=== PATIENT | female | born 1975 | race Caucasian/White ===

== ENCOUNTER 2020-06-06 15:58 | Inpatient (IN) | payer OTHER ==
[2020-06-06 18:24] VITALS: BMI 20.5
[2020-06-06] MEDS ORDERED: chlordiazePOXIDE HCL 25 MG CAPSULE PO PRN (20:19)
[2020-06-06] MEDS ORDERED: MAGNESIUM HYDROX 2400MG/30ML ORAL SUSPENSION 30 ML CUP PO PRN (20:19)
[2020-06-06] MEDS ORDERED: ACETAMINOPHEN 325 MG TABLET (FP) PO PRN ×2 (20:19)
[2020-06-06] MEDS ORDERED: MENTHOL/PHENOL 1 EACH UD MM PRN (20:19)
[2020-06-06] MEDS ORDERED: IBUPROFEN 400 MG TABLET (FP) PO PRN (20:19)
[2020-06-06] MEDS ORDERED: NICOTINE POLACRILEX 2 MG GUM BUC PRN (20:19)
[2020-06-06] MEDS ORDERED: BISMUTH SUBSALICYLATE 524 MG/30 ML UD PO PRN (20:19)
[2020-06-06] MEDS ORDERED: MAG HYDROX/AL HYDROX/SIMETH 30 ML UNIT-DOSE CUP PO PRN (20:19)
[2020-06-06] MEDS ORDERED: ONDANSETRON *ODT* 4 MG TABLET SL PRN (20:19)
[2020-06-06] MEDS ORDERED: MAGNESIUM CITRATE 300 ML BOTTLE PO PRN (20:19)
[2020-06-06] MEDS ORDERED: PANTOPRAZOLE 20 MG TABLET PO ONE (21:01)
[2020-06-06] MEDS: THIAMINE HCL 100 MG TABLET (FP) PO SCH (22:28)
[2020-06-06] MEDS: MELATONIN 5 MG TABLETS PO PRN (22:28)
[2020-06-06] MEDS: chlordiazePOXIDE HCL 25 MG CAPSULE PO SCH (22:30)
[2020-06-07] MEDS ORDERED: METHOCARBAMOL 500 MG TABLET ONE (05:27)
[2020-06-07] MEDS ORDERED: chlordiazePOXIDE HCL 25 MG CAPSULE ONE (05:27)
[2020-06-07] MEDS: METHOCARBAMOL 500 MG TABLET PO PRN ×2 (05:29→22:53)
[2020-06-07] MEDS: chlordiazePOXIDE HCL 25 MG CAPSULE PO SCH ×4 (05:29→22:53)
[2020-06-07] MEDS ORDERED: METHADONE HCL 10 MG TABLET PO ONE (09:35)
[2020-06-07] MEDS ORDERED: METHADONE 160 MG, METHADONE 5 MG PO ONE (10:15)
[2020-06-07] MEDS ORDERED: METHADONE HCL 5 MG TABLET ONE (11:07)
[2020-06-07] MEDS ORDERED: METHADONE HCL 40 MG DISPERSABLE TABLET ONE (11:07)
[2020-06-07] MEDS: PANTOPRAZOLE 40 MG TABLET PO SCH (11:11)
[2020-06-07] MEDS: BACITRACIN 0.9 GM PACKET TP SCH (11:13)
[2020-06-07] MEDS: PRENATAL VITAMINS W/ FOLIC ACID TABLET (FP) PO SCH (11:13)
[2020-06-07 11:57] LABS: POTASSIUM 3.9 mmol/L (3.5-5.1)
[2020-06-07 11:59] LABS: HEMATOCRIT 32.8 % (32.4-45.2); HEMOGLOBIN 11.1 GM/dL (10.7-15.3); MCH 31.8 pg (25.7-33.7); MCHC 33.9 g/dl (32.0-36.0); MEAN CELL VOLUME 93.9 fl (80-96); MEAN PLT VOLUME 8.1 fl (7.5-11.1); PLATELET COUNT 191 K/MM3 (134-434); RBC 3.49 M/mm3 (3.60-5.2); RDW 13.2 % (11.6-15.6)
[2020-06-07 12:01] LABS: ALBUMIN 2.9 g/dl (3.4-5.0); CALCIUM 8.4 mg/dL (8.5-10.1)
[2020-06-07 12:02] LABS: BLOOD UREA NITROGEN 12.2 mg/dL (7-18)
[2020-06-07 12:05] LABS: CREATININE 0.7 mg/dL (0.55-1.3)
[2020-06-07 12:06] LABS: BILIRUBIN,TOTAL 0.8 mg/dL (0.2-1); TOT PROT 6.6 g/dl (6.4-8.2)
[2020-06-07] MEDS: DOCUSATE SODIUM 100 MG CAPSULE (FP) PO SCH (22:54)
[2020-06-07] MEDS: MELATONIN 5 MG TABLETS PO PRN (22:54)
[2020-06-07] MEDS: THIAMINE HCL 100 MG TABLET (FP) PO SCH (22:54)
[2020-06-08] MEDS ORDERED: METHADONE HCL 5 MG TABLET ONE (05:44)
[2020-06-08] MEDS ORDERED: METHADONE HCL 40 MG DISPERSABLE TABLET ONE (05:44)
[2020-06-08] MEDS: METHADONE 160 MG, METHADONE 5 MG PO SCH (05:47)
[2020-06-08] MEDS: chlordiazePOXIDE HCL 25 MG CAPSULE PO SCH ×4 (05:48→22:10)
[2020-06-08] MEDS ORDERED: METHADONE HCL 10 MG TABLET PO SCH (06:00)
[2020-06-08] MEDS: PANTOPRAZOLE 40 MG TABLET PO SCH (10:43)
[2020-06-08] MEDS: PRENATAL VITAMINS W/ FOLIC ACID TABLET (FP) PO SCH (10:43)
[2020-06-08] MEDS: BACITRACIN 0.9 GM PACKET TP SCH (10:43)
[2020-06-08] MEDS: METHOCARBAMOL 500 MG TABLET PO PRN (17:14)
[2020-06-08] MEDS: DOCUSATE SODIUM 100 MG CAPSULE (FP) PO SCH (21:57)
[2020-06-08] MEDS: QUEtiapine FUMARATE 50 MG TABLET PO SCH (21:57)
[2020-06-08] MEDS: THIAMINE HCL 100 MG TABLET (FP) PO SCH (21:57)
[2020-06-08] MEDS: MELATONIN 5 MG TABLETS PO PRN (21:58)
[2020-06-09] MEDS ORDERED: chlordiazePOXIDE HCL 10 MG CAPSULE PO PRN
[2020-06-09] MEDS ORDERED: METHADONE HCL 40 MG DISPERSABLE TABLET ONE (03:56)
[2020-06-09] MEDS ORDERED: METHADONE HCL 5 MG TABLET ONE (03:57)
[2020-06-09] MEDS: METHADONE 160 MG, METHADONE 5 MG PO SCH (07:04)
[2020-06-09] MEDS: chlordiazePOXIDE HCL 10 MG CAPSULE PO SCH ×2 (07:05→10:54)
[2020-06-09] MEDS: BACITRACIN 0.9 GM PACKET TP SCH (10:54)
[2020-06-09] MEDS: PANTOPRAZOLE 40 MG TABLET PO SCH (10:56)
[2020-06-09] MEDS: PRENATAL VITAMINS W/ FOLIC ACID TABLET (FP) PO SCH (10:56)
[2020-06-09] MEDS ORDERED: LORazepam 1 MG TABLET PO ONE (17:00)
[2020-06-09] MEDS: METHOCARBAMOL 500 MG TABLET PO PRN ×2 (17:08→22:26)
[2020-06-09] MEDS: THIAMINE HCL 100 MG TABLET (FP) PO SCH (22:24)
[2020-06-09] MEDS: QUEtiapine FUMARATE 50 MG TABLET PO SCH (22:24)
[2020-06-09] MEDS: LORazepam 0.5 MG TABLET PO PRN (22:25)
[2020-06-09] MEDS: DOCUSATE SODIUM 100 MG CAPSULE (FP) PO SCH (23:06)
[2020-06-10] MEDS ORDERED: METHADONE HCL 5 MG TABLET ONE (03:43)
[2020-06-10] MEDS ORDERED: METHADONE HCL 40 MG DISPERSABLE TABLET ONE (03:43)
[2020-06-10] MEDS: METHADONE 160 MG, METHADONE 5 MG PO SCH (06:26)
[2020-06-10] MEDS: LORazepam 0.5 MG TABLET PO SCH ×2 (06:26→17:44)
[2020-06-10] MEDS: PRENATAL VITAMINS W/ FOLIC ACID TABLET (FP) PO SCH (10:37)
[2020-06-10] MEDS: BACITRACIN 0.9 GM PACKET TP SCH (10:37)
[2020-06-10] MEDS: PANTOPRAZOLE 40 MG TABLET PO SCH (10:37)
[2020-06-10] MEDS: LORazepam 0.5 MG TABLET PO PRN ×2 (14:58→20:12)
[2020-06-10] MEDS: METHOCARBAMOL 500 MG TABLET PO PRN ×2 (14:59→20:12)
[2020-06-10] MEDS: MELATONIN 5 MG TABLETS PO PRN (22:29)
[2020-06-10] MEDS: QUEtiapine FUMARATE 50 MG TABLET PO SCH (22:29)
[2020-06-10] MEDS: THIAMINE HCL 100 MG TABLET (FP) PO SCH (22:29)
[2020-06-10] MEDS: DOCUSATE SODIUM 100 MG CAPSULE (FP) PO SCH (22:29)
[2020-06-11] MEDS ORDERED: LORazepam 0.5 MG TABLET PO ONE (05:00)
[2020-06-11] MEDS ORDERED: METHADONE HCL 40 MG DISPERSABLE TABLET ONE (05:14)
[2020-06-11] MEDS ORDERED: METHADONE HCL 5 MG TABLET ONE (05:15)
[2020-06-11] MEDS: METHADONE 160 MG, METHADONE 5 MG PO SCH (05:58)
[2020-06-11 09:09] VITALS: BP 122/76; PULSE 101; TEMP 97.6
== END 2020-06-11 09:51 | disposition home or self-care (01) | DRG 773 ==
LOC: YASAS 15:58 → Y6N 06-07 08:53
PROVIDERS: ADMIT Allergy & Immunology; ATTEND Allergy & Immunology
PROC: HZ2ZZZZ Detoxification Services for Substance Abuse Treatment (ICD-10-PCS; principal; 2020-06-07)
DX: F10.230 Alcohol dependence with withdrawal, uncomplicated (principal); F13.20 Sedative, hypnotic or anxiolytic dependence, uncomplicated; F11.20 Opioid dependence, uncomplicated; F10.220 Alcohol dependence with intoxication, uncomplicated; F19.282 Other psychoactive substance dependence with psychoactive substance-induced sleep disorder; F41.9 Anxiety disorder, unspecified; M54.5 Low back pain; G89.29 Other chronic pain; J39.2 Other diseases of pharynx; R07.9 Chest pain, unspecified; R94.31 Abnormal electrocardiogram [ECG] [EKG]; R74.01 Elevation of levels of liver transaminase levels; R23.4 Changes in skin texture; Z87.891 Personal history of nicotine dependence; S80.211D Abrasion, right knee, subsequent encounter; S90.811D Abrasion, right foot, subsequent encounter; W19.XXXD Unspecified fall, subsequent encounter
CPT/HCPCS: 36415; 80053; 81025; 85027; 86780; 87070; 93005; 93010; C9803; Q0162; U0003

== ENCOUNTER 2022-02-27 18:40 | Inpatient (IN) | payer OTHER ==
[2022-02-27 20:06] VITALS: BMI 19.7
[2022-02-27] MEDS ORDERED: ONDANSETRON *ODT* 4 MG TABLET SL PRN (22:36)
[2022-02-27] MEDS ORDERED: MAGNESIUM CITRATE 300 ML BOTTLE PO PRN (22:36)
[2022-02-27] MEDS ORDERED: IBUPROFEN 400 MG TABLET (FP) PO PRN (22:36)
[2022-02-27] MEDS ORDERED: LOPERAMIDE HCL 2 MG CAPSULE PO PRN (22:36)
[2022-02-27] MEDS ORDERED: NICOTINE POLACRILEX 2 MG GUM BUC PRN (22:36)
[2022-02-27] MEDS ORDERED: MAGNESIUM HYDROX 2400MG/30ML ORAL SUSPENSION 30 ML CUP PO PRN (22:36)
[2022-02-27] MEDS ORDERED: BENZOCAINE/MENTHOL (CHLORASEPTIC ) LOZENGE MM PRN (22:36)
[2022-02-27] MEDS ORDERED: ACETAMINOPHEN 325 MG TABLET (FP) PO PRN ×2 (22:36)
[2022-02-27] MEDS ORDERED: IBUPROFEN 600 MG TABLET (FP) PO PRN (22:36)
[2022-02-27] MEDS ORDERED: BISMUTH SUBSALICYLATE 524 MG/30 ML PO PRN (22:36)
[2022-02-27] MEDS ORDERED: NALOXONE HCL (KLOXXADO) 8 MG SPRAY NS PRN (22:36)
[2022-02-27] MEDS ORDERED: DICYCLOMINE HCL 10 MG CAPSULE PO PRN (22:36)
[2022-02-27] MEDS ORDERED: chlordiazePOXIDE HCL 25 MG CAPSULE ONE (22:55)
[2022-02-27] MEDS: chlordiazePOXIDE HCL 25 MG CAPSULE PO SCH (23:01)
[2022-02-27] MEDS ORDERED: methaDONE HCL 10 MG TABLET (FOR DETOX USE ONLY) ONE (23:09)
[2022-02-27] MEDS ORDERED: methaDONE HCL 40 MG DISPERSABLE TABLET PO ONE (23:30)
[2022-02-28] MEDS ORDERED: chlordiazePOXIDE HCL 25 MG CAPSULE PO ONE (06:22)
[2022-02-28] MEDS: chlordiazePOXIDE HCL 25 MG CAPSULE PO SCH ×4 (07:44→22:32)
[2022-02-28] MEDS ORDERED: methaDONE HCL 40 MG DISPERSABLE TABLET PO ONE ×2 (08:26→23:30)
[2022-02-28] MEDS: chlordiazePOXIDE HCL 25 MG CAPSULE PO PRN (09:00)
[2022-02-28] MEDS: PRENATAL VITAMINS W/ FOLIC ACID TABLET (FP) PO SCH (10:48)
[2022-02-28] MEDS: MAG HYDROX/AL HYDROX/SIMETH 30 ML UNIT-DOSE CUP PO PRN (10:50)
[2022-02-28] MEDS: NICOTINE 14 MG/24 HOURS TOPICAL PATCH TD SCH (10:51)
[2022-02-28 12:03] LABS: CALCIUM 8.5 mg/dL (8.5-10.1)
[2022-02-28 12:04] LABS: ALBUMIN 3.3 g/dl (3.4-5.0); BLOOD UREA NITROGEN 14.1 mg/dL (7-18)
[2022-02-28 12:07] LABS: CREATININE 0.5 mg/dL (0.55-1.3)
[2022-02-28 12:09] LABS: BILIRUBIN,TOTAL 2.7 mg/dL (0.2-1); TOT PROT 6.5 g/dl (6.4-8.2)
[2022-02-28 12:25] LABS: HEMATOCRIT 30.4 % (32.4-45.2); HEMOGLOBIN 10.1 GM/dL (10.7-15.3); MCH 29.9 pg (25.7-33.7); MCHC 33.2 g/dl (32.0-36.0); MEAN PLT VOLUME 8.8 fl (7.5-11.1); PLATELET COUNT 140 10^3/uL (134-434); RBC 3.38 M/mm3 (3.60-5.2); RDW 13.9 % (11.6-15.6); WHITE BLOOD COUNT 7.5 K/mm3 (4.0-10.0)
[2022-02-28] MEDS: METHOCARBAMOL 500 MG TABLET PO PRN ×2 (14:03→18:25)
[2022-02-28] MEDS: MELATONIN 5 MG TABLETS PO SCH (22:33)
[2022-02-28] MEDS: THIAMINE HCL 100 MG TABLET (FP) PO SCH (22:33)
[2022-03-01] MEDS: METHOCARBAMOL 500 MG TABLET PO PRN ×3 (03:14→18:08)
[2022-03-01] MEDS: chlordiazePOXIDE HCL 25 MG CAPSULE PO SCH ×4 (05:52→22:30)
[2022-03-01] MEDS ORDERED: methaDONE HCL 40 MG DISPERSABLE TABLET PO ONE (09:00)
[2022-03-01] MEDS: NICOTINE 14 MG/24 HOURS TOPICAL PATCH TD SCH (09:21)
[2022-03-01] MEDS: PRENATAL VITAMINS W/ FOLIC ACID TABLET (FP) PO SCH (10:09)
[2022-03-01] MEDS: MAG HYDROX/AL HYDROX/SIMETH 30 ML UNIT-DOSE CUP PO PRN (10:56)
[2022-03-01] MEDS ORDERED: hydrOXYzine PAMOATE 25 MG CAPSULE (FP) PO ONE (15:48)
[2022-03-01] MEDS: chlordiazePOXIDE HCL 25 MG CAPSULE PO PRN (19:59)
[2022-03-01] MEDS: THIAMINE HCL 100 MG TABLET (FP) PO SCH (22:30)
[2022-03-01] MEDS: MELATONIN 5 MG TABLETS PO SCH (22:30)
[2022-03-02] MEDS: chlordiazePOXIDE HCL 10 MG CAPSULE PO PRN ×4 (00:51→20:25)
[2022-03-02] MEDS: METHOCARBAMOL 500 MG TABLET PO PRN ×3 (00:52→17:33)
[2022-03-02] MEDS: chlordiazePOXIDE HCL 10 MG CAPSULE PO SCH ×4 (05:55→22:19)
[2022-03-02] MEDS ORDERED: methaDONE HCL 10 MG TABLET PO ONE ×3 (09:48→13:49)
[2022-03-02] MEDS: NICOTINE 14 MG/24 HOURS TOPICAL PATCH TD SCH (10:14)
[2022-03-02] MEDS ORDERED: methaDONE 40 MG, methaDONE 10 MG PO ONE (10:15)
[2022-03-02] MEDS: PRENATAL VITAMINS W/ FOLIC ACID TABLET (FP) PO SCH (10:17)
[2022-03-02] MEDS: hydrOXYzine PAMOATE 25 MG CAPSULE (FP) PO PRN ×3 (13:14→22:18)
[2022-03-02] MEDS: LACTULOSE 20 GM/30 ML UDC (FOR ORAL USE ONLY) PO SCH ×2 (13:14→22:18)
[2022-03-02] MEDS: MELATONIN 5 MG TABLETS PO SCH (22:17)
[2022-03-02] MEDS: THIAMINE HCL 100 MG TABLET (FP) PO SCH (22:17)
[2022-03-03] MEDS: LACTULOSE 20 GM/30 ML UDC (FOR ORAL USE ONLY) PO SCH ×3 (05:31→22:11)
[2022-03-03] MEDS: chlordiazePOXIDE HCL 10 MG CAPSULE PO SCH ×2 (05:31→17:40)
[2022-03-03] MEDS ORDERED: methaDONE HCL 10 MG TABLET PO ONE (06:00)
[2022-03-03] MEDS ORDERED: methaDONE 40 MG, methaDONE 20 MG PO ONE (06:00)
[2022-03-03] MEDS: NICOTINE 14 MG/24 HOURS TOPICAL PATCH TD SCH (10:33)
[2022-03-03] MEDS: PRENATAL VITAMINS W/ FOLIC ACID TABLET (FP) PO SCH (10:33)
[2022-03-03] MEDS: METHOCARBAMOL 500 MG TABLET PO PRN ×3 (10:34→23:37)
[2022-03-03 17:11] VITALS: RESP 16
[2022-03-03] MEDS: hydrOXYzine PAMOATE 25 MG CAPSULE (FP) PO PRN ×2 (17:40→23:37)
[2022-03-03] MEDS: MELATONIN 5 MG TABLETS PO SCH (22:11)
[2022-03-03] MEDS: THIAMINE HCL 100 MG TABLET (FP) PO SCH (22:11)
[2022-03-04] MEDS ORDERED: chlordiazePOXIDE HCL 10 MG CAPSULE PO ONE (05:00)
[2022-03-04] MEDS: LACTULOSE 20 GM/30 ML UDC (FOR ORAL USE ONLY) PO SCH (05:30)
[2022-03-04] MEDS ORDERED: methaDONE 40 MG, methaDONE 30 MG PO ONE (06:00)
[2022-03-04] MEDS ORDERED: methaDONE HCL 10 MG TABLET PO ONE (06:00)
[2022-03-04 08:33] VITALS: BP 113/80; PULSE 99; TEMP 97.3
[2022-03-04] MEDS: PRENATAL VITAMINS W/ FOLIC ACID TABLET (FP) PO SCH (09:24)
[2022-03-04] MEDS: NICOTINE 14 MG/24 HOURS TOPICAL PATCH TD SCH (09:24)
== END 2022-03-04 08:23 | disposition home or self-care (01) | DRG 773 ==
LOC: YASAS 18:40 → Y6N 22:30
PROVIDERS: ADMIT Allergy & Immunology; ATTEND Surgery
PROC: HZ2ZZZZ Detoxification Services for Substance Abuse Treatment (ICD-10-PCS; principal; 2022-02-27)
DX: F10.230 Alcohol dependence with withdrawal, uncomplicated (principal); F11.20 Opioid dependence, uncomplicated; F41.9 Anxiety disorder, unspecified; R41.82 Altered mental status, unspecified; R26.89 Other abnormalities of gait and mobility; S09.90XA Unspecified injury of head, initial encounter; S80.212A Abrasion, left knee, initial encounter; S80.211A Abrasion, right knee, initial encounter; W19.XXXA Unspecified fall, initial encounter; Y92.9 Unspecified place or not applicable; Z87.891 Personal history of nicotine dependence; Z28.310 Unvaccinated for COVID-19; Z28.9 Immunization not carried out for unspecified reason; Z87.19 Personal history of other diseases of the digestive system
CPT/HCPCS: 36415; 70450-TC; 70486-TC; 71045-TC-FY; 72125-TC; 80053; 80307; 81003; 81025; 82140; 82247; 82962; 84703; 85025; 85027; 85610; 85730; 86780; 93005; 93010; C9803-CS; U0003; U0005

== ENCOUNTER 2022-03-19 21:32 | Inpatient (IN) | payer OTHER ==
[2022-03-19 18:58] VITALS: BMI 18.8
[~2022-03-19 21:32] MED LIST: ACETAMINOPHEN 325 MG TABLET (FP) PO PRN; BENZOCAINE/MENTHOL (CHLORASEPTIC ) LOZENGE MM PRN; BISMUTH SUBSALICYLATE 524 MG/30 ML PO PRN; DICYCLOMINE HCL 10 MG CAPSULE PO PRN; IBUPROFEN 400 MG TABLET (FP) PO PRN; IBUPROFEN 600 MG TABLET (FP) PO PRN; LOPERAMIDE HCL 2 MG CAPSULE PO PRN; NALOXONE HCL (KLOXXADO) 8 MG SPRAY NS PRN; NALOXONE HCL 0.4 MG/ML VIAL IM PRN; NICOTINE 10 MG CARTRIDGE (INHALER) IH PRN; ONDANSETRON *ODT* 4 MG TABLET SL PRN; P-EPHED 60MG/TRIPROLIDI 2.5MG TABLET PO PRN
[2022-03-19] MEDS ORDERED: MELATONIN 5 MG TABLETS PO SCH (22:00)
[2022-03-19] MEDS: METHOCARBAMOL 500 MG TABLET PO PRN (23:53)
[2022-03-19] MEDS: THIAMINE HCL 100 MG TABLET (FP) PO SCH (23:53)
[2022-03-19] MEDS: hydrOXYzine PAMOATE 25 MG CAPSULE (FP) PO PRN (23:53)
[2022-03-20] MEDS ORDERED: methaDONE HCL 10 MG TABLET PO ONE (09:43)
[2022-03-20] MEDS ORDERED: methaDONE HCL 10 MG TABLET (FOR DETOX USE ONLY) ONE (09:58)
[2022-03-20] MEDS ORDERED: ONDANSETRON *ODT* 4 MG TABLET ONE (09:59)
[2022-03-20] MEDS: NICOTINE 14 MG/24 HOURS TOPICAL PATCH TD SCH (10:00)
[2022-03-20] MEDS ORDERED: chlordiazePOXIDE HCL 25 MG CAPSULE ONE (10:10)
[2022-03-20] MEDS: chlordiazePOXIDE HCL 25 MG CAPSULE PO SCH ×3 (10:13→22:10)
[2022-03-20] MEDS: PRENATAL VITAMINS W/ FOLIC ACID TABLET (FP) PO SCH (10:14)
[2022-03-20] MEDS: MAG HYDROX/AL HYDROX/SIMETH 30 ML UNIT-DOSE CUP PO PRN (12:35)
[2022-03-20] MEDS: hydrOXYzine PAMOATE 25 MG CAPSULE (FP) PO PRN (12:35)
[2022-03-20] MEDS: chlordiazePOXIDE HCL 25 MG CAPSULE PO PRN (15:29)
[2022-03-20 17:53] LABS: EPI CELLS >36 /uL (0-25.1); HYALINE CASTS 2 /uL (0-3.1); PH,URINE 8.5 (5.0-8.0); URINE APPEARANCE CLOUDY; URINE BACTERIA 1010 /uL (0-1359); URINE BILIRUBIN NEGATIVE (NEGATIVE); URINE COLOR YELLOW; URINE GLUCOSE (UA) NEGATIVE (NEGATIVE); URINE KETONE NEGATIVE (NEGATIVE); URINE LEUK ESTERASE 1+ (NEGATIVE); URINE NITRITE NEGATIVE (NEGATIVE); URINE PROTEIN NEGATIVE (NEGATIVE); URINE RBC 9 /uL (0-23.9); URINE WBC 19 /uL (0-25.8)
[2022-03-20] MEDS: THIAMINE HCL 100 MG TABLET (FP) PO SCH (22:11)
[2022-03-20] MEDS: QUEtiapine FUMARATE 25 MG TABLET PO SCH (22:11)
[2022-03-21] MEDS: chlordiazePOXIDE HCL 25 MG CAPSULE PO SCH ×4 (05:36→22:01)
[2022-03-21] MEDS ORDERED: methaDONE HCL 10 MG TABLET PO SCH (06:00)
[2022-03-21] MEDS: PRENATAL VITAMINS W/ FOLIC ACID TABLET (FP) PO SCH (10:24)
[2022-03-21] MEDS: NICOTINE 14 MG/24 HOURS TOPICAL PATCH TD SCH (10:24)
[2022-03-21] MEDS: hydrOXYzine PAMOATE 25 MG CAPSULE (FP) PO PRN ×2 (10:24→17:48)
[2022-03-21] MEDS: MAG HYDROX/AL HYDROX/SIMETH 30 ML UNIT-DOSE CUP PO PRN (10:26)
[2022-03-21] MEDS: METHOCARBAMOL 500 MG TABLET PO PRN ×2 (10:26→17:48)
[2022-03-21 12:31] LABS: CALCIUM 9.1 mg/dL (8.5-10.1)
[2022-03-21 12:32] LABS: ALBUMIN 2.6 g/dl (3.4-5.0); BLOOD UREA NITROGEN 6.5 mg/dL (7-18); HEMATOCRIT 32.3 % (32.4-45.2); HEMOGLOBIN 10.9 GM/dL (10.7-15.3); MCH 31.3 pg (25.7-33.7); MCHC 33.8 g/dl (32.0-36.0); MEAN CELL VOLUME 92.4 fl (80-96); MEAN PLT VOLUME 8.4 fl (7.5-11.1); PLATELET COUNT 205 10^3/uL (134-434); WHITE BLOOD COUNT 4.6 K/mm3 (4.0-10.0)
[2022-03-21 12:35] LABS: CREATININE 0.6 mg/dL (0.55-1.3)
[2022-03-21 12:37] LABS: BILIRUBIN,TOTAL 0.5 mg/dL (0.2-1); TOT PROT 5.9 g/dl (6.4-8.2)
[2022-03-21] MEDS: chlordiazePOXIDE HCL 25 MG CAPSULE PO PRN ×2 (14:34→20:51)
[2022-03-21] MEDS: MAGNESIUM HYDROX 2400MG/30ML ORAL SUSPENSION 30 ML CUP PO PRN (14:34)
[2022-03-21] MEDS: QUEtiapine FUMARATE 25 MG TABLET PO SCH (22:02)
[2022-03-21] MEDS: THIAMINE HCL 100 MG TABLET (FP) PO SCH (22:02)
[2022-03-22] MEDS: chlordiazePOXIDE HCL 25 MG CAPSULE PO SCH ×4 (05:36→22:01)
[2022-03-22] MEDS: MAG HYDROX/AL HYDROX/SIMETH 30 ML UNIT-DOSE CUP PO PRN (05:41)
[2022-03-22] MEDS: hydrOXYzine PAMOATE 25 MG CAPSULE (FP) PO PRN ×3 (05:41→21:33)
[2022-03-22] MEDS: METHOCARBAMOL 500 MG TABLET PO PRN ×3 (05:41→18:22)
[2022-03-22] MEDS ORDERED: methaDONE HCL 10 MG TABLET PO SCH (08:45)
[2022-03-22] MEDS ORDERED: methaDONE 40 MG, methaDONE 30 MG PO ONE (09:00)
[2022-03-22] MEDS: PRENATAL VITAMINS W/ FOLIC ACID TABLET (FP) PO SCH (10:08)
[2022-03-22] MEDS: NICOTINE 14 MG/24 HOURS TOPICAL PATCH TD SCH (10:10)
[2022-03-22] MEDS: MAGNESIUM HYDROX 2400MG/30ML ORAL SUSPENSION 30 ML CUP PO PRN (10:10)
[2022-03-22] MEDS: chlordiazePOXIDE HCL 25 MG CAPSULE PO PRN (12:18)
[2022-03-22] MEDS: POLYETHYLENE GLYCOL (HEALTHYLAX) 3350 17 GM PACKET PO SCH (17:13)
[2022-03-22] MEDS: QUEtiapine FUMARATE 25 MG TABLET PO SCH (21:32)
[2022-03-22] MEDS: THIAMINE HCL 100 MG TABLET (FP) PO SCH (21:33)
[2022-03-23] MEDS ORDERED: chlordiazePOXIDE HCL 10 MG CAPSULE PO PRN
[2022-03-23] MEDS: hydrOXYzine PAMOATE 25 MG CAPSULE (FP) PO PRN ×3 (05:39→22:15)
[2022-03-23] MEDS: MAGNESIUM HYDROX 2400MG/30ML ORAL SUSPENSION 30 ML CUP PO PRN (05:40)
[2022-03-23] MEDS: methaDONE 40 MG, methaDONE 30 MG PO SCH (05:40)
[2022-03-23] MEDS: chlordiazePOXIDE HCL 10 MG CAPSULE PO SCH ×4 (05:40→22:14)
[2022-03-23] MEDS: METHOCARBAMOL 500 MG TABLET PO PRN ×2 (08:56→20:13)
[2022-03-23] MEDS: NICOTINE 14 MG/24 HOURS TOPICAL PATCH TD SCH (10:12)
[2022-03-23] MEDS: POLYETHYLENE GLYCOL (HEALTHYLAX) 3350 17 GM PACKET PO SCH (10:12)
[2022-03-23] MEDS: PRENATAL VITAMINS W/ FOLIC ACID TABLET (FP) PO SCH (10:12)
[2022-03-23] MEDS: QUEtiapine FUMARATE 50 MG TABLET PO SCH (22:14)
[2022-03-23] MEDS: THIAMINE HCL 100 MG TABLET (FP) PO SCH (22:14)
[2022-03-24] MEDS: chlordiazePOXIDE HCL 10 MG CAPSULE PO SCH ×2 (05:35→17:47)
[2022-03-24] MEDS: hydrOXYzine PAMOATE 25 MG CAPSULE (FP) PO PRN ×3 (05:36→22:18)
[2022-03-24] MEDS: methaDONE 40 MG, methaDONE 30 MG PO SCH (05:37)
[2022-03-24] MEDS: MAGNESIUM HYDROX 2400MG/30ML ORAL SUSPENSION 30 ML CUP PO PRN (05:39)
[2022-03-24] MEDS: NICOTINE 14 MG/24 HOURS TOPICAL PATCH TD SCH ×2 (09:16→10:40)
[2022-03-24] MEDS: METHOCARBAMOL 500 MG TABLET PO PRN ×2 (09:16→17:49)
[2022-03-24] MEDS: MAG HYDROX/AL HYDROX/SIMETH 30 ML UNIT-DOSE CUP PO PRN (09:16)
[2022-03-24] MEDS: POLYETHYLENE GLYCOL (HEALTHYLAX) 3350 17 GM PACKET PO SCH (09:16)
[2022-03-24] MEDS: PRENATAL VITAMINS W/ FOLIC ACID TABLET (FP) PO SCH (09:16)
[2022-03-24] MEDS: SULFAMETHOXAZOLE/TRIMETHOPRIM 800MG/160MG D.S. TABLET PO SCH ×2 (13:15→22:17)
[2022-03-24] MEDS: QUEtiapine FUMARATE 50 MG TABLET PO SCH (22:17)
[2022-03-24] MEDS: THIAMINE HCL 100 MG TABLET (FP) PO SCH (22:17)
[2022-03-24] MEDS: guaiFENesin 200 MG/10 ML 10 ML UNIT-DOSE CUPS PO PRN (22:18)
[2022-03-25] MEDS ORDERED: chlordiazePOXIDE HCL 10 MG CAPSULE PO ONE (05:00)
[2022-03-25] MEDS: methaDONE 40 MG, methaDONE 30 MG PO SCH (06:07)
[2022-03-25] MEDS: hydrOXYzine PAMOATE 25 MG CAPSULE (FP) PO PRN (06:11)
[2022-03-25] MEDS: guaiFENesin 200 MG/10 ML 10 ML UNIT-DOSE CUPS PO PRN (06:40)
[2022-03-25 10:17] VITALS: BP 136/82; PULSE 79; RESP 16; TEMP 96.8
[2022-03-25] MEDS: PRENATAL VITAMINS W/ FOLIC ACID TABLET (FP) PO SCH (10:28)
[2022-03-25] MEDS: NICOTINE 14 MG/24 HOURS TOPICAL PATCH TD SCH (10:28)
[2022-03-25] MEDS: POLYETHYLENE GLYCOL (HEALTHYLAX) 3350 17 GM PACKET PO SCH (10:29)
[2022-03-25] MEDS: SULFAMETHOXAZOLE/TRIMETHOPRIM 800MG/160MG D.S. TABLET PO SCH (10:29)
[2022-03-25] MEDS: METHOCARBAMOL 500 MG TABLET PO PRN (10:30)
== END 2022-03-25 11:40 | disposition home or self-care (01) | DRG 773 ==
LOC: YASAS 21:32 → UNDOADMIN 21:33 → Y3N 21:33
PROVIDERS: ADMIT Allergy & Immunology; ATTEND Surgery
PROC: HZ2ZZZZ Detoxification Services for Substance Abuse Treatment (ICD-10-PCS; principal; 2022-03-20)
DX: F10.230 Alcohol dependence with withdrawal, uncomplicated (principal); F11.20 Opioid dependence, uncomplicated; F12.20 Cannabis dependence, uncomplicated; F19.282 Other psychoactive substance dependence with psychoactive substance-induced sleep disorder; F41.9 Anxiety disorder, unspecified; G47.00 Insomnia, unspecified; N39.0 Urinary tract infection, site not specified; R79.89 Other specified abnormal findings of blood chemistry; M54.50 Low back pain, unspecified; G89.29 Other chronic pain
CPT/HCPCS: 36415; 80053; 81003; 81025; 82140; 82947; 85027; 86780; 87086; C9803-CS; Q0162; U0003; U0005

== ENCOUNTER 2022-05-11 14:12 | Inpatient (IN) | payer OTHER ==
[2022-05-11 15:57] VITALS: BMI 18.8
[2022-05-11] MEDS ORDERED: chlordiazePOXIDE HCL 25 MG CAPSULE PO ONE (18:39)
[2022-05-11] MEDS ORDERED: chlordiazePOXIDE HCL 25 MG CAPSULE PO PRN (18:39)
[2022-05-11] MEDS ORDERED: ACETAMINOPHEN 325 MG TABLET (FP) PO PRN ×3 (18:40→19:04)
[2022-05-11] MEDS ORDERED: BISMUTH SUBSALICYLATE 524 MG/30 ML PO PRN (18:40)
[2022-05-11] MEDS ORDERED: BENZOCAINE/MENTHOL (CHLORASEPTIC ) LOZENGE MM PRN (18:40)
[2022-05-11] MEDS ORDERED: NALOXONE HCL (KLOXXADO) 8 MG SPRAY NS PRN (18:40)
[2022-05-11] MEDS ORDERED: LOPERAMIDE HCL 2 MG CAPSULE PO PRN (18:40)
[2022-05-11] MEDS ORDERED: MAG HYDROX/AL HYDROX/SIMETH 30 ML UNIT-DOSE CUP PO PRN (18:40)
[2022-05-11] MEDS ORDERED: ONDANSETRON *ODT* 4 MG TABLET SL PRN (18:40)
[2022-05-11] MEDS ORDERED: MAGNESIUM HYDROX 2400MG/30ML ORAL SUSPENSION 30 ML CUP PO PRN (18:40)
[2022-05-11] MEDS ORDERED: chlordiazePOXIDE HCL 25 MG CAPSULE ONE (18:53)
[2022-05-11] MEDS ORDERED: DICYCLOMINE HCL 10 MG CAPSULE ONE (19:01)
[2022-05-11] MEDS ORDERED: IBUPROFEN 400 MG TABLET (FP) PO PRN (19:03)
[2022-05-11] MEDS: DICYCLOMINE HCL 10 MG CAPSULE PO PRN (19:03)
[2022-05-11] MEDS ORDERED: IBUPROFEN 400 MG TABLET (FP) PO ONE (20:05)
[2022-05-11] MEDS ORDERED: ONDANSETRON *ODT* 4 MG TABLET ONE (20:09)
[2022-05-11] MEDS: chlordiazePOXIDE HCL 25 MG CAPSULE PO SCH (22:35)
[2022-05-11] MEDS: THIAMINE HCL 100 MG TABLET (FP) PO SCH (22:35)
[2022-05-11] MEDS: MELATONIN 5 MG TABLETS PO SCH (22:35)
[2022-05-11] MEDS: cloNIDine HCL 0.1 MG TABLET PO SCH (22:36)
[2022-05-11] MEDS: PANTOPRAZOLE 40 MG TABLET PO SCH (22:37)
[2022-05-12] MEDS: chlordiazePOXIDE HCL 25 MG CAPSULE PO SCH ×4 (05:33→22:31)
[2022-05-12] MEDS ORDERED: methaDONE HCL 10 MG TABLET PO SCH (06:00)
[2022-05-12] MEDS: hydrOXYzine PAMOATE 25 MG CAPSULE (FP) PO PRN (08:32)
[2022-05-12] MEDS ORDERED: methaDONE HCL 10 MG TABLET PO ONE (08:58)
[2022-05-12] MEDS: PANTOPRAZOLE 40 MG TABLET PO SCH (09:44)
[2022-05-12] MEDS: QUEtiapine FUMARATE 25 MG TABLET PO SCH ×2 (09:44→22:31)
[2022-05-12] MEDS: cloNIDine HCL 0.1 MG TABLET PO SCH ×2 (09:44→22:34)
[2022-05-12] MEDS: POLYETHYLENE GLYCOL (HEALTHYLAX) 3350 17 GM PACKET PO SCH (09:45)
[2022-05-12] MEDS: PRENATAL VITAMINS W/ FOLIC ACID TABLET (FP) PO SCH (09:45)
[2022-05-12] MEDS ORDERED: DICYCLOMINE HCL 10 MG CAPSULE PO ONE (11:40)
[2022-05-12 11:47] LABS: HEMATOCRIT 35.2 % (32.4-45.2); HEMOGLOBIN 11.5 GM/dL (10.7-15.3); MCH 29.1 pg (25.7-33.7); MCHC 32.6 g/dl (32.0-36.0); MEAN CELL VOLUME 89.1 fl (80-96); MEAN PLT VOLUME 8.3 fl (7.5-11.1); PLATELET COUNT 142 10^3/uL (134-434); RBC 3.95 M/mm3 (3.60-5.2); RDW 17.9 % (11.6-15.6); WHITE BLOOD COUNT 4.7 K/mm3 (4.0-10.0)
[2022-05-12 12:06] LABS: BLOOD UREA NITROGEN 14.8 mg/dL (7-18)
[2022-05-12 12:07] LABS: ALBUMIN 3.3 g/dl (3.4-5.0); CALCIUM 9.5 mg/dL (8.5-10.1); MAGNESIUM 2.2 mg/dL (1.8-2.4)
[2022-05-12 12:09] LABS: CREATININE 0.5 mg/dL (0.55-1.3); PHOSPHOROUS 3.1 mg/dL (2.5-4.9)
[2022-05-12 12:10] LABS: BILIRUBIN,TOTAL 2.5 mg/dL (0.2-1)
[2022-05-12 12:12] LABS: TOT PROT 7.1 g/dl (6.4-8.2)
[2022-05-12] MEDS: LACTULOSE 20 GM/30 ML UDC (FOR ORAL USE ONLY) PO SCH ×3 (13:24→22:32)
[2022-05-12] MEDS: THIAMINE HCL 100 MG TABLET (FP) PO SCH (22:32)
[2022-05-12] MEDS: MELATONIN 5 MG TABLETS PO SCH (22:32)
[2022-05-13] MEDS: hydrOXYzine PAMOATE 25 MG CAPSULE (FP) PO PRN ×2 (02:12→22:40)
[2022-05-13] MEDS: chlordiazePOXIDE HCL 25 MG CAPSULE PO SCH ×4 (05:11→22:38)
[2022-05-13] MEDS ORDERED: ACETAMINOPHEN 325 MG TABLET (FP) PO ONE (05:42)
[2022-05-13] MEDS ORDERED: methaDONE HCL 40 MG DISPERSABLE TABLET PO ONE (06:00)
[2022-05-13] MEDS: QUEtiapine FUMARATE 25 MG TABLET PO SCH ×2 (10:10→22:38)
[2022-05-13] MEDS: PANTOPRAZOLE 40 MG TABLET PO SCH (10:10)
[2022-05-13] MEDS: PRENATAL VITAMINS W/ FOLIC ACID TABLET (FP) PO SCH (10:10)
[2022-05-13] MEDS: cloNIDine HCL 0.1 MG TABLET PO SCH ×2 (10:10→22:38)
[2022-05-13] MEDS: POLYETHYLENE GLYCOL (HEALTHYLAX) 3350 17 GM PACKET PO SCH (10:13)
[2022-05-13] MEDS: LACTULOSE 20 GM/30 ML UDC (FOR ORAL USE ONLY) PO SCH ×4 (10:13→22:39)
[2022-05-13] MEDS: PSYLLIUM 5.85 GM PACKET PO SCH (13:35)
[2022-05-13] MEDS: MELATONIN 5 MG TABLETS PO SCH (22:38)
[2022-05-13] MEDS: THIAMINE HCL 100 MG TABLET (FP) PO SCH (22:38)
[2022-05-14] MEDS ORDERED: chlordiazePOXIDE HCL 10 MG CAPSULE PO PRN
[2022-05-14] MEDS: chlordiazePOXIDE HCL 10 MG CAPSULE PO SCH ×4 (05:48→23:05)
[2022-05-14] MEDS ORDERED: methaDONE 40 MG, methaDONE 10 MG PO ONE (06:00)
[2022-05-14] MEDS ORDERED: methaDONE HCL 10 MG TABLET PO ONE (08:59)
[2022-05-14] MEDS: LACTULOSE 20 GM/30 ML UDC (FOR ORAL USE ONLY) PO SCH ×4 (10:45→23:05)
[2022-05-14] MEDS: hydrOXYzine PAMOATE 25 MG CAPSULE (FP) PO PRN ×2 (10:45→18:08)
[2022-05-14] MEDS: PRENATAL VITAMINS W/ FOLIC ACID TABLET (FP) PO SCH (10:45)
[2022-05-14] MEDS: PANTOPRAZOLE 40 MG TABLET PO SCH (10:45)
[2022-05-14] MEDS: QUEtiapine FUMARATE 25 MG TABLET PO SCH ×2 (10:45→23:04)
[2022-05-14] MEDS: cloNIDine HCL 0.1 MG TABLET PO SCH ×2 (10:45→23:16)
[2022-05-14] MEDS: PSYLLIUM 5.85 GM PACKET PO SCH (10:45)
[2022-05-14] MEDS: POLYETHYLENE GLYCOL (HEALTHYLAX) 3350 17 GM PACKET PO SCH (10:51)
[2022-05-14] MEDS: MELATONIN 5 MG TABLETS PO SCH (23:04)
[2022-05-14] MEDS: THIAMINE HCL 100 MG TABLET (FP) PO SCH (23:04)
[2022-05-15] MEDS: chlordiazePOXIDE HCL 10 MG CAPSULE PO SCH ×2 (05:26→17:58)
[2022-05-15] MEDS ORDERED: methaDONE 40 MG, methaDONE 20 MG PO ONE (06:00)
[2022-05-15] MEDS ORDERED: methaDONE HCL 10 MG TABLET PO ONE (09:00)
[2022-05-15 10:05] VITALS: RESP 16
[2022-05-15] MEDS: PRENATAL VITAMINS W/ FOLIC ACID TABLET (FP) PO SCH (10:15)
[2022-05-15] MEDS: PANTOPRAZOLE 40 MG TABLET PO SCH (10:15)
[2022-05-15] MEDS: LACTULOSE 20 GM/30 ML UDC (FOR ORAL USE ONLY) PO SCH ×4 (10:15→21:59)
[2022-05-15] MEDS: PSYLLIUM 5.85 GM PACKET PO SCH (10:16)
[2022-05-15] MEDS: cloNIDine HCL 0.1 MG TABLET PO SCH ×2 (10:16→21:59)
[2022-05-15] MEDS: POLYETHYLENE GLYCOL (HEALTHYLAX) 3350 17 GM PACKET PO SCH (10:16)
[2022-05-15] MEDS: QUEtiapine FUMARATE 25 MG TABLET PO SCH ×2 (10:16→21:59)
[2022-05-15] MEDS: hydrOXYzine PAMOATE 25 MG CAPSULE (FP) PO PRN (17:59)
[2022-05-15] MEDS: MELATONIN 5 MG TABLETS PO SCH (21:59)
[2022-05-15] MEDS: THIAMINE HCL 100 MG TABLET (FP) PO SCH (21:59)
[2022-05-16] MEDS ORDERED: chlordiazePOXIDE HCL 10 MG CAPSULE PO ONE (05:00)
[2022-05-16] MEDS ORDERED: methaDONE 40 MG, methaDONE 30 MG PO ONE (06:00)
[2022-05-16] MEDS ORDERED: methaDONE HCL 10 MG TABLET PO ONE (06:00)
[2022-05-16 10:10] VITALS: BP 128/80; PULSE 93; TEMP 97.1
[2022-05-16] MEDS: QUEtiapine FUMARATE 25 MG TABLET PO SCH (10:13)
[2022-05-16] MEDS: PANTOPRAZOLE 40 MG TABLET PO SCH (10:13)
[2022-05-16] MEDS: cloNIDine HCL 0.1 MG TABLET PO SCH (10:13)
[2022-05-16] MEDS: PRENATAL VITAMINS W/ FOLIC ACID TABLET (FP) PO SCH (10:13)
[2022-05-16] MEDS: POLYETHYLENE GLYCOL (HEALTHYLAX) 3350 17 GM PACKET PO SCH (10:14)
[2022-05-16] MEDS: LACTULOSE 20 GM/30 ML UDC (FOR ORAL USE ONLY) PO SCH (10:14)
[2022-05-16] MEDS: PSYLLIUM 5.85 GM PACKET PO SCH (10:18)
[2022-05-16] MEDS: DICYCLOMINE HCL 10 MG CAPSULE PO PRN (11:34)
== END 2022-05-16 11:50 | disposition home or self-care (01) | DRG 773 ==
LOC: YASAS 14:12 → Y6N 20:13
PROVIDERS: ADMIT Allergy & Immunology; ATTEND Surgery
PROC: HZ2ZZZZ Detoxification Services for Substance Abuse Treatment (ICD-10-PCS; principal; 2022-05-11)
DX: F10.230 Alcohol dependence with withdrawal, uncomplicated (principal); F13.230 Sedative, hypnotic or anxiolytic dependence with withdrawal, uncomplicated; F11.20 Opioid dependence, uncomplicated; F19.282 Other psychoactive substance dependence with psychoactive substance-induced sleep disorder; F19.280 Other psychoactive substance dependence with psychoactive substance-induced anxiety disorder; F19.24 Other psychoactive substance dependence with psychoactive substance-induced mood disorder; F41.9 Anxiety disorder, unspecified; I10 Essential (primary) hypertension; K21.9 Gastro-esophageal reflux disease without esophagitis; M54.50 Low back pain, unspecified; G89.29 Other chronic pain; R79.89 Other specified abnormal findings of blood chemistry; Z20.822 Contact with and (suspected) exposure to COVID-19; Z87.19 Personal history of other diseases of the digestive system; Z86.69 Personal history of other diseases of the nervous system and sense organs
CPT/HCPCS: 36415; 80053; 82140; 83036; 83690; 83735; 84100; 84443; 85027; 86780; 87811; C9803-CS; Q0162; U0003; U0005

== ENCOUNTER 2022-06-24 18:57 | Inpatient (IN) | payer OTHER ==
[2022-06-24 19:51] VITALS: BMI 21.4
[2022-06-24] MEDS ORDERED: BISMUTH SUBSALICYLATE 524 MG/30 ML PO PRN (21:01)
[2022-06-24] MEDS ORDERED: LOPERAMIDE HCL 2 MG CAPSULE PO PRN (21:01)
[2022-06-24] MEDS ORDERED: BENZOCAINE/MENTHOL (CHLORASEPTIC ) LOZENGE MM PRN (21:01)
[2022-06-24] MEDS ORDERED: guaiFENesin 200 MG/10 ML 10 ML UNIT-DOSE CUPS PO PRN (21:01)
[2022-06-24] MEDS ORDERED: P-EPHED 60MG/TRIPROLIDI 2.5MG TABLET PO PRN (21:01)
[2022-06-24] MEDS ORDERED: ONDANSETRON *ODT* 4 MG TABLET SL PRN (21:01)
[2022-06-24] MEDS ORDERED: DICYCLOMINE HCL 10 MG CAPSULE PO PRN (21:01)
[2022-06-24] MEDS ORDERED: IBUPROFEN 400 MG TABLET (FP) PO PRN (21:01)
[2022-06-24] MEDS ORDERED: POLYETHYLENE GLYCOL (HEALTHYLAX) 3350 17 GM PACKET PO PRN (21:01)
[2022-06-24] MEDS ORDERED: ACETAMINOPHEN 325 MG TABLET (FP) PO PRN ×2 (21:01)
[2022-06-24] MEDS ORDERED: MAGNESIUM HYDROX 2400MG/30ML ORAL SUSPENSION 30 ML CUP PO PRN (21:01)
[2022-06-24] MEDS ORDERED: chlordiazePOXIDE HCL 25 MG CAPSULE PO ONE (21:03)
[2022-06-24] MEDS: MELATONIN 5 MG TABLETS PO PRN (22:24)
[2022-06-24] MEDS: THIAMINE HCL 100 MG TABLET (FP) PO SCH (22:24)
[2022-06-24] MEDS: chlordiazePOXIDE HCL 25 MG CAPSULE PO SCH (22:25)
[2022-06-25] MEDS: chlordiazePOXIDE HCL 25 MG CAPSULE PO SCH ×4 (05:22→22:42)
[2022-06-25] MEDS: METHOCARBAMOL 500 MG TABLET PO PRN ×3 (05:24→22:45)
[2022-06-25] MEDS: IBUPROFEN 600 MG TABLET (FP) PO PRN ×2 (07:52→22:45)
[2022-06-25] MEDS: chlordiazePOXIDE HCL 25 MG CAPSULE PO PRN (07:53)
[2022-06-25] MEDS ORDERED: PATIENT'S OWN MEDICATION (NON-FORMULARY) (Methadone 70 MG) PO SCH (09:30)
[2022-06-25] MEDS ORDERED: methaDONE 40 MG, methaDONE 30 MG PO SCH (10:00)
[2022-06-25 10:28] LABS: HEMATOCRIT 30.5 % (32.4-45.2); HEMOGLOBIN 10.1 GM/dL (10.7-15.3); MCH 29.9 pg (25.7-33.7); MCHC 33.3 g/dl (32.0-36.0); MEAN CELL VOLUME 89.8 fl (80-96); MEAN PLT VOLUME 8.3 fl (7.5-11.1); PLATELET COUNT 228 10^3/uL (134-434); RDW 18.1 % (11.6-15.6); WHITE BLOOD COUNT 7.7 K/mm3 (4.0-10.0)
[2022-06-25] MEDS: methaDONE 40 MG, methaDONE 30 MG PO SCH (10:58)
[2022-06-25] MEDS: PRENATAL VITAMINS W/ FOLIC ACID TABLET (FP) PO SCH (10:58)
[2022-06-25 11:09] LABS: CALCIUM 8.8 mg/dL (8.5-10.1)
[2022-06-25 11:10] LABS: BLOOD UREA NITROGEN 10.3 mg/dL (7-18)
[2022-06-25 11:12] LABS: BILIRUBIN,TOTAL 1.1 mg/dL (0.2-1); CREATININE 0.5 mg/dL (0.55-1.3); TOT PROT 6.6 g/dl (6.4-8.2)
[2022-06-25] MEDS: MAG HYDROX/AL HYDROX/SIMETH 30 ML UNIT-DOSE CUP PO PRN ×2 (14:05→22:43)
[2022-06-25] MEDS: LIDOCAINE 5% TOPICAL PATCH TP SCH (17:53)
[2022-06-25] MEDS: THIAMINE HCL 100 MG TABLET (FP) PO SCH (22:43)
[2022-06-25] MEDS: LIDOCAINE PATCH REMOVAL MC SCH (22:45)
[2022-06-26] MEDS: methaDONE 40 MG, methaDONE 30 MG PO SCH (05:15)
[2022-06-26] MEDS: chlordiazePOXIDE HCL 25 MG CAPSULE PO SCH ×4 (05:16→22:43)
[2022-06-26] MEDS: PRENATAL VITAMINS W/ FOLIC ACID TABLET (FP) PO SCH (10:14)
[2022-06-26] MEDS: METHOCARBAMOL 500 MG TABLET PO PRN ×2 (10:16→17:39)
[2022-06-26] MEDS: LIDOCAINE 5% TOPICAL PATCH TP SCH (10:17)
[2022-06-26] MEDS: IBUPROFEN 600 MG TABLET (FP) PO PRN ×2 (10:17→22:45)
[2022-06-26] MEDS: chlordiazePOXIDE HCL 25 MG CAPSULE PO PRN (17:39)
[2022-06-26] MEDS: MELATONIN 5 MG TABLETS PO PRN (22:43)
[2022-06-26] MEDS: LIDOCAINE PATCH REMOVAL MC SCH (22:44)
[2022-06-26] MEDS: THIAMINE HCL 100 MG TABLET (FP) PO SCH (22:44)
[2022-06-27] MEDS ORDERED: chlordiazePOXIDE HCL 10 MG CAPSULE PO PRN
[2022-06-27] MEDS: chlordiazePOXIDE HCL 10 MG CAPSULE PO SCH ×4 (05:03→22:30)
[2022-06-27] MEDS: methaDONE 40 MG, methaDONE 30 MG PO SCH (05:04)
[2022-06-27] MEDS: LIDOCAINE 5% TOPICAL PATCH TP SCH (10:43)
[2022-06-27] MEDS: PRENATAL VITAMINS W/ FOLIC ACID TABLET (FP) PO SCH (10:43)
[2022-06-27] MEDS: METHOCARBAMOL 500 MG TABLET PO PRN ×2 (11:25→17:37)
[2022-06-27] MEDS: THIAMINE HCL 100 MG TABLET (FP) PO SCH (22:30)
[2022-06-27] MEDS: MELATONIN 5 MG TABLETS PO PRN (22:30)
[2022-06-27] MEDS: LIDOCAINE PATCH REMOVAL MC SCH (22:31)
[2022-06-27] MEDS: IBUPROFEN 600 MG TABLET (FP) PO PRN (22:32)
[2022-06-28] MEDS: chlordiazePOXIDE HCL 10 MG CAPSULE PO SCH ×2 (05:50→17:31)
[2022-06-28] MEDS: methaDONE 40 MG, methaDONE 30 MG PO SCH (05:50)
[2022-06-28] MEDS: LIDOCAINE 5% TOPICAL PATCH TP SCH (10:22)
[2022-06-28] MEDS: PRENATAL VITAMINS W/ FOLIC ACID TABLET (FP) PO SCH (10:23)
[2022-06-28] MEDS: METHOCARBAMOL 500 MG TABLET PO PRN ×3 (10:23→23:50)
[2022-06-28] MEDS: THIAMINE HCL 100 MG TABLET (FP) PO SCH (22:17)
[2022-06-28] MEDS: MELATONIN 5 MG TABLETS PO PRN (22:17)
[2022-06-28] MEDS: IBUPROFEN 600 MG TABLET (FP) PO PRN (22:20)
[2022-06-28] MEDS: LIDOCAINE PATCH REMOVAL MC SCH (22:22)
[2022-06-29] MEDS ORDERED: chlordiazePOXIDE HCL 10 MG CAPSULE PO ONE (05:00)
[2022-06-29] MEDS: methaDONE 40 MG, methaDONE 30 MG PO SCH (05:23)
[2022-06-29] MEDS: IBUPROFEN 600 MG TABLET (FP) PO PRN (05:25)
[2022-06-29] MEDS: METHOCARBAMOL 500 MG TABLET PO PRN (07:53)
[2022-06-29 08:11] VITALS: BP 97/60; PULSE 80; RESP 17; TEMP 97.8
[2022-06-29] MEDS: LIDOCAINE 5% TOPICAL PATCH TP SCH (09:18)
[2022-06-29] MEDS: PRENATAL VITAMINS W/ FOLIC ACID TABLET (FP) PO SCH (09:18)
== END 2022-06-29 10:15 | disposition home or self-care (01) | DRG 773 ==
LOC: YASAS 18:57 → Y6N 21:09
PROVIDERS: ADMIT Allergy & Immunology; ATTEND Surgery
PROC: HZ2ZZZZ Detoxification Services for Substance Abuse Treatment (ICD-10-PCS; principal; 2022-06-24)
DX: F10.230 Alcohol dependence with withdrawal, uncomplicated (principal); F11.20 Opioid dependence, uncomplicated; F41.9 Anxiety disorder, unspecified; M54.50 Low back pain, unspecified; G89.29 Other chronic pain; Z87.19 Personal history of other diseases of the digestive system
CPT/HCPCS: 36415; 80053; 81025; 85027; 86780; C9803-CS; U0003; U0005

== ENCOUNTER 2022-08-13 13:15 | Inpatient (IN) | payer OTHER ==
[2022-08-13 14:16] VITALS: BMI 17.8
[2022-08-13] MEDS ORDERED: NICOTINE 10 MG CARTRIDGE (INHALER) IH PRN (15:23)
[2022-08-13] MEDS ORDERED: ACETAMINOPHEN 325 MG TABLET (FP) PO PRN (15:23)
[2022-08-13] MEDS ORDERED: DICYCLOMINE HCL 10 MG CAPSULE PO PRN (15:23)
[2022-08-13] MEDS ORDERED: NALOXONE HCL 0.4 MG/ML VIAL IM PRN (15:23)
[2022-08-13] MEDS ORDERED: POLYETHYLENE GLYCOL (HEALTHYLAX) 3350 17 GM PACKET PO PRN (15:23)
[2022-08-13] MEDS ORDERED: MAGNESIUM HYDROX 2400MG/30ML ORAL SUSPENSION 30 ML CUP PO PRN (15:23)
[2022-08-13] MEDS ORDERED: guaiFENesin 600 MG TABLET.ER (FP) PO PRN (15:23)
[2022-08-13] MEDS ORDERED: BISMUTH SUBSALICYLATE 524 MG/30 ML PO PRN (15:23)
[2022-08-13] MEDS ORDERED: ONDANSETRON *ODT* 4 MG TABLET SL PRN (15:23)
[2022-08-13] MEDS ORDERED: LOPERAMIDE HCL 2 MG CAPSULE PO PRN (15:23)
[2022-08-13] MEDS ORDERED: BENZONATATE 200 MG CAPSULE PO PRN (15:23)
[2022-08-13] MEDS ORDERED: NALOXONE HCL (KLOXXADO) 8 MG SPRAY NS PRN (15:23)
[2022-08-13] MEDS ORDERED: MAG HYDROX/AL HYDROX/SIMETH 30 ML UNIT-DOSE CUP PO PRN (15:23)
[2022-08-13] MEDS ORDERED: IBUPROFEN 400 MG TABLET (FP) PO PRN (15:23)
[2022-08-13] MEDS ORDERED: chlordiazePOXIDE HCL 25 MG CAPSULE PO ONE (15:28)
[2022-08-13] MEDS ORDERED: hydrOXYzine PAMOATE 25 MG CAPSULE (FP) PO ONE (16:31)
[2022-08-13] MEDS: hydrOXYzine PAMOATE 25 MG CAPSULE (FP) PO PRN (16:32)
[2022-08-13] MEDS ORDERED: chlordiazePOXIDE HCL 25 MG CAPSULE ONE ×2 (17:45→22:09)
[2022-08-13] MEDS ORDERED: TRIMETHOBENZAMIDE HCL 200MG/2ML INJ IM ONE ×2 (18:24→18:37)
[2022-08-13] MEDS: METHOCARBAMOL 500 MG TABLET PO PRN (18:44)
[2022-08-13] MEDS ORDERED: METHOCARBAMOL 500 MG TABLET ONE (18:46)
[2022-08-13] MEDS: chlordiazePOXIDE HCL 25 MG CAPSULE PO SCH (22:08)
[2022-08-13] MEDS ORDERED: MELATONIN 5 MG TABLETS ONE (22:12)
[2022-08-13] MEDS: MELATONIN 5 MG TABLETS PO SCH (22:26)
[2022-08-13] MEDS: THIAMINE HCL 100 MG TABLET (FP) PO SCH (22:26)
[2022-08-14] MEDS ORDERED: hydrOXYzine PAMOATE 25 MG CAPSULE (FP) PO ONE (02:15)
[2022-08-14] MEDS ORDERED: IBUPROFEN 600 MG TABLET (FP) PO ONE (02:15)
[2022-08-14] MEDS ORDERED: METHOCARBAMOL 500 MG TABLET ONE (02:15)
[2022-08-14] MEDS: IBUPROFEN 600 MG TABLET (FP) PO PRN (02:16)
[2022-08-14] MEDS: hydrOXYzine PAMOATE 25 MG CAPSULE (FP) PO PRN ×2 (02:16→15:43)
[2022-08-14] MEDS: METHOCARBAMOL 500 MG TABLET PO PRN ×3 (02:17→22:18)
[2022-08-14] MEDS: chlordiazePOXIDE HCL 25 MG CAPSULE PO SCH ×4 (06:00→22:19)
[2022-08-14] MEDS ORDERED: chlordiazePOXIDE HCL 25 MG CAPSULE ONE ×2 (06:12→10:48)
[2022-08-14] MEDS ORDERED: methaDONE HCL 10 MG TABLET PO ONE (10:12)
[2022-08-14] MEDS ORDERED: methaDONE HCL 10 MG TABLET (FOR DETOX USE ONLY) ONE (10:49)
[2022-08-14] MEDS ORDERED: PRENATAL VITAMINS W/ FOLIC ACID TABLET (FP) PO ONE (10:49)
[2022-08-14] MEDS: PRENATAL VITAMINS W/ FOLIC ACID TABLET (FP) PO SCH (10:53)
[2022-08-14] MEDS ORDERED: QUEtiapine FUMARATE 25 MG TABLET PO ONE ×2 (13:28→15:45)
[2022-08-14] MEDS: QUEtiapine FUMARATE 50 MG TABLET PO SCH (22:17)
[2022-08-14] MEDS: THIAMINE HCL 100 MG TABLET (FP) PO SCH (22:18)
[2022-08-14] MEDS: MELATONIN 5 MG TABLETS PO SCH (22:18)
[2022-08-14] MEDS: BENZOCAINE/MENTHOL (CHLORASEPTIC ) LOZENGE MM PRN (22:22)
[2022-08-15] MEDS: chlordiazePOXIDE HCL 25 MG CAPSULE PO SCH ×4 (05:27→22:36)
[2022-08-15] MEDS: METHOCARBAMOL 500 MG TABLET PO PRN ×3 (05:27→22:39)
[2022-08-15] MEDS: BENZOCAINE/MENTHOL (CHLORASEPTIC ) LOZENGE MM PRN ×2 (05:28→10:18)
[2022-08-15] MEDS ORDERED: methaDONE HCL 10 MG TABLET PO ONE (06:00)
[2022-08-15] MEDS: hydrOXYzine PAMOATE 25 MG CAPSULE (FP) PO PRN ×2 (07:25→15:42)
[2022-08-15] MEDS: QUEtiapine FUMARATE 25 MG TABLET PO SCH (10:18)
[2022-08-15] MEDS: PRENATAL VITAMINS W/ FOLIC ACID TABLET (FP) PO SCH (10:18)
[2022-08-15] MEDS: IBUPROFEN 600 MG TABLET (FP) PO PRN ×2 (11:17→22:38)
[2022-08-15 12:18] LABS: HEMATOCRIT 31.4 % (32.4-45.2); HEMOGLOBIN 10.7 GM/dL (10.7-15.3); MCH 28.7 pg (25.7-33.7); MCHC 33.9 g/dl (32.0-36.0); MEAN CELL VOLUME 84.5 fl (80-96); MEAN PLT VOLUME 8.3 fl (7.5-11.1); PLATELET COUNT 162 10^3/uL (134-434); RBC 3.72 M/mm3 (3.60-5.2); WHITE BLOOD COUNT 11.3 K/mm3 (4.0-10.0)
[2022-08-15 12:25] LABS: ALBUMIN 2.8 g/dl (3.4-5.0); CALCIUM 8.4 mg/dL (8.5-10.1)
[2022-08-15 12:26] LABS: BLOOD UREA NITROGEN 11.5 mg/dL (7-18)
[2022-08-15 12:28] LABS: CREATININE 0.6 mg/dL (0.55-1.3)
[2022-08-15 12:30] LABS: BILIRUBIN,TOTAL 0.6 mg/dL (0.2-1); TOT PROT 6.3 g/dl (6.4-8.2)
[2022-08-15] MEDS: THIAMINE HCL 100 MG TABLET (FP) PO SCH (22:36)
[2022-08-15] MEDS: MELATONIN 5 MG TABLETS PO SCH (22:36)
[2022-08-15] MEDS: QUEtiapine FUMARATE 50 MG TABLET PO SCH (22:36)
[2022-08-16] MEDS: chlordiazePOXIDE HCL 10 MG CAPSULE PO SCH ×4 (05:23→22:03)
[2022-08-16] MEDS: METHOCARBAMOL 500 MG TABLET PO PRN ×3 (05:25→18:41)
[2022-08-16] MEDS ORDERED: methaDONE HCL 10 MG TABLET PO ONE (06:00)
[2022-08-16] MEDS: hydrOXYzine PAMOATE 25 MG CAPSULE (FP) PO PRN (06:58)
[2022-08-16] MEDS: PRENATAL VITAMINS W/ FOLIC ACID TABLET (FP) PO SCH (10:09)
[2022-08-16] MEDS: QUEtiapine FUMARATE 25 MG TABLET PO SCH (10:09)
[2022-08-16 11:16] LABS: BASO % 0.8 % (0-2.0); EOS % 4.6 % (0-4.5); HEMATOCRIT 32.7 % (32.4-45.2); LYMPH % 29.2 % (8-40); MCH 28.6 pg (25.7-33.7); MCHC 33.6 g/dl (32.0-36.0); MEAN CELL VOLUME 85.3 fl (80-96); MONO % 8.1 % (3.8-10.2); NEUT % 57.3 % (42.8-82.8); PLATELET COUNT 166 10^3/uL (134-434); RBC 3.83 M/mm3 (3.60-5.2)
[2022-08-16 11:17] LABS: CALCIUM 9.2 mg/dL (8.5-10.1)
[2022-08-16 11:18] LABS: BLOOD UREA NITROGEN 15.6 mg/dL (7-18)
[2022-08-16 11:21] LABS: CREATININE 0.6 mg/dL (0.55-1.3)
[2022-08-16] MEDS ORDERED: chlordiazePOXIDE HCL 10 MG CAPSULE PO ONE (14:00)
[2022-08-16 21:22] LABS: EPI CELLS 10 /uL (0-25.1); HYALINE CASTS 0 /uL (0-3.1); URINE APPEARANCE CLEAR; URINE BACTERIA 19 /uL (0-1359); URINE BILIRUBIN NEGATIVE (NEGATIVE); URINE COLOR YELLOW; URINE GLUCOSE (UA) NEGATIVE (NEGATIVE); URINE KETONE NEGATIVE (NEGATIVE); URINE LEUK ESTERASE 2+ (NEGATIVE); URINE NITRITE NEGATIVE (NEGATIVE); URINE PROTEIN NEGATIVE (NEGATIVE); URINE RBC 2 /uL (0-23.9); URINE UROBILINOGEN 0.2 mg/dL (0.2-1.0); URINE WBC 35 /uL (0-25.8)
[2022-08-16] MEDS: QUEtiapine FUMARATE 50 MG TABLET PO SCH (22:03)
[2022-08-16] MEDS: MELATONIN 5 MG TABLETS PO SCH (22:03)
[2022-08-16] MEDS: FAMOTIDINE 20 MG TABLET PO SCH (22:03)
[2022-08-16] MEDS: THIAMINE HCL 100 MG TABLET (FP) PO SCH (22:03)
[2022-08-17] MEDS: chlordiazePOXIDE HCL 10 MG CAPSULE PO SCH ×2 (05:10→17:07)
[2022-08-17] MEDS: METHOCARBAMOL 500 MG TABLET PO PRN ×4 (05:12→23:18)
[2022-08-17] MEDS ORDERED: methaDONE HCL 10 MG TABLET PO ONE (06:00)
[2022-08-17] MEDS: PRENATAL VITAMINS W/ FOLIC ACID TABLET (FP) PO SCH (10:38)
[2022-08-17] MEDS: FAMOTIDINE 20 MG TABLET PO SCH ×2 (10:38→22:07)
[2022-08-17] MEDS: QUEtiapine FUMARATE 25 MG TABLET PO SCH (10:38)
[2022-08-17] MEDS: SULFAMETHOXAZOLE/TRIMETHOPRIM 800MG/160MG D.S. TABLET PO SCH ×2 (10:38→22:07)
[2022-08-17] MEDS: hydrOXYzine PAMOATE 25 MG CAPSULE (FP) PO PRN ×2 (10:45→18:15)
[2022-08-17] MEDS: QUEtiapine FUMARATE 50 MG TABLET PO SCH (22:07)
[2022-08-17] MEDS: THIAMINE HCL 100 MG TABLET (FP) PO SCH (22:07)
[2022-08-17] MEDS: MELATONIN 5 MG TABLETS PO SCH (22:07)
[2022-08-18] MEDS ORDERED: chlordiazePOXIDE HCL 10 MG CAPSULE PO ONE (05:00)
[2022-08-18] MEDS: METHOCARBAMOL 500 MG TABLET PO PRN ×2 (05:10→11:12)
[2022-08-18] MEDS ORDERED: methaDONE HCL 10 MG TABLET PO SCH (06:00)
[2022-08-18] MEDS: hydrOXYzine PAMOATE 25 MG CAPSULE (FP) PO PRN ×2 (07:08→07:09)
[2022-08-18 08:56] VITALS: BP 104/65; PULSE 70; RESP 18; TEMP 98.4
[2022-08-18] MEDS: SULFAMETHOXAZOLE/TRIMETHOPRIM 800MG/160MG D.S. TABLET PO SCH (09:40)
[2022-08-18] MEDS: QUEtiapine FUMARATE 25 MG TABLET PO SCH (09:40)
[2022-08-18] MEDS: FAMOTIDINE 20 MG TABLET PO SCH (09:40)
[2022-08-18] MEDS: PRENATAL VITAMINS W/ FOLIC ACID TABLET (FP) PO SCH (09:41)
[2022-08-18] MEDS: BENZOCAINE/MENTHOL (CHLORASEPTIC ) LOZENGE MM PRN (11:10)
== END 2022-08-18 11:11 | disposition home or self-care (01) | DRG 773 ==
LOC: YASAS 13:15 → Y3N 08-14 12:15
PROVIDERS: ADMIT Allergy & Immunology; ATTEND Surgery
PROC: HZ2ZZZZ Detoxification Services for Substance Abuse Treatment (ICD-10-PCS; principal; 2022-08-14)
DX: F10.230 Alcohol dependence with withdrawal, uncomplicated (principal); F11.20 Opioid dependence, uncomplicated; F13.20 Sedative, hypnotic or anxiolytic dependence, uncomplicated; F14.20 Cocaine dependence, uncomplicated; F12.20 Cannabis dependence, uncomplicated; F17.210 Nicotine dependence, cigarettes, uncomplicated; F19.282 Other psychoactive substance dependence with psychoactive substance-induced sleep disorder; F19.280 Other psychoactive substance dependence with psychoactive substance-induced anxiety disorder; F19.24 Other psychoactive substance dependence with psychoactive substance-induced mood disorder; F41.9 Anxiety disorder, unspecified; D72.829 Elevated white blood cell count, unspecified; E87.1 Hypo-osmolality and hyponatremia; I10 Essential (primary) hypertension; K21.9 Gastro-esophageal reflux disease without esophagitis; N39.0 Urinary tract infection, site not specified; M54.50 Low back pain, unspecified; G89.29 Other chronic pain; Z87.19 Personal history of other diseases of the digestive system; Z86.19 Personal history of other infectious and parasitic diseases
CPT/HCPCS: 36415; 80048; 80053; 81003; 81025; 82140; 85025; 85027; 86780; 87811; 93005; 93010; C9803-CS; U0003; U0005

== ENCOUNTER 2022-12-22 16:57 | Inpatient (IN) | payer OTHER ==
[2022-12-22 19:07] VITALS: BMI 18.0
[2022-12-22] MEDS ORDERED: METOPROLOL TARTRATE 25 MG TABLET (FP) PO ONE (19:22)
[2022-12-22] MEDS ORDERED: guaiFENesin 600 MG TABLET.ER (FP) PO PRN (19:34)
[2022-12-22] MEDS ORDERED: IBUPROFEN 400 MG TABLET (FP) PO PRN (19:34)
[2022-12-22] MEDS ORDERED: LOPERAMIDE HCL 2 MG CAPSULE PO PRN (19:34)
[2022-12-22] MEDS ORDERED: NICOTINE POLACRILEX 2 MG GUM BUC PRN (19:34)
[2022-12-22] MEDS ORDERED: MAG HYDROX/AL HYDROX/SIMETH 30 ML UNIT-DOSE CUP PO PRN (19:34)
[2022-12-22] MEDS ORDERED: P-EPHED 60MG/TRIPROLIDI 2.5MG TABLET PO PRN (19:34)
[2022-12-22] MEDS ORDERED: DICYCLOMINE HCL 10 MG CAPSULE PO PRN (19:34)
[2022-12-22] MEDS ORDERED: ACETAMINOPHEN 325 MG TABLET (FP) PO PRN (19:34)
[2022-12-22] MEDS ORDERED: ONDANSETRON *ODT* 4 MG TABLET SL PRN (19:34)
[2022-12-22] MEDS ORDERED: IBUPROFEN 600 MG TABLET (FP) PO PRN (19:34)
[2022-12-22] MEDS ORDERED: MAGNESIUM HYDROX 2400MG/30ML ORAL SUSPENSION 30 ML CUP PO PRN (19:34)
[2022-12-22] MEDS ORDERED: BENZOCAINE/MENTHOL (CHLORASEPTIC ) LOZENGE MM PRN (19:34)
[2022-12-22] MEDS ORDERED: BENZONATATE 200 MG CAPSULE PO PRN (19:34)
[2022-12-22] MEDS ORDERED: POLYETHYLENE GLYCOL (HEALTHYLAX) 3350 17 GM PACKET PO PRN (19:34)
[2022-12-22] MEDS ORDERED: chlordiazePOXIDE HCL 25 MG CAPSULE PO ONE (19:45)
[2022-12-22] MEDS ORDERED: chlordiazePOXIDE HCL 25 MG CAPSULE ONE (19:48)
[2022-12-22] MEDS ORDERED: METOPROLOL TARTRATE 25 MG TABLET (FP) ONE (19:48)
[2022-12-22] MEDS ORDERED: ONDANSETRON *ODT* 4 MG TABLET ONE (20:27)
[2022-12-22] MEDS: chlordiazePOXIDE HCL 25 MG CAPSULE PO SCH (22:17)
[2022-12-22] MEDS: levETIRAcetam 500 MG TABLET (FP) PO SCH (22:18)
[2022-12-22] MEDS: THIAMINE HCL 100 MG TABLET (FP) PO SCH (22:18)
[2022-12-22] MEDS: FAMOTIDINE 20 MG TABLET PO SCH (22:18)
[2022-12-22] MEDS: MELATONIN 5 MG TABLETS PO SCH (22:18)
[2022-12-22] MEDS: METHOCARBAMOL 500 MG TABLET PO PRN (22:19)
[2022-12-23] MEDS: METHOCARBAMOL 500 MG TABLET PO PRN ×3 (04:30→21:26)
[2022-12-23] MEDS: chlordiazePOXIDE HCL 25 MG CAPSULE PO SCH ×4 (04:30→22:37)
[2022-12-23] MEDS: levETIRAcetam 500 MG TABLET (FP) PO SCH ×2 (10:22→21:26)
[2022-12-23] MEDS: FAMOTIDINE 20 MG TABLET PO SCH ×2 (10:22→21:26)
[2022-12-23] MEDS: PRENATAL VITAMINS W/ FOLIC ACID TABLET (FP) PO SCH (10:22)
[2022-12-23] MEDS: QUEtiapine FUMARATE 25 MG TABLET PO SCH ×2 (11:07→21:26)
[2022-12-23 11:12] LABS: POTASSIUM 3.8 mmol/L (3.5-5.1)
[2022-12-23 11:14] LABS: BLOOD UREA NITROGEN 17.7 mg/dL (7-18)
[2022-12-23 11:15] LABS: ALBUMIN 3.3 g/dl (3.4-5.0)
[2022-12-23 11:18] LABS: CREATININE 0.7 mg/dL (0.55-1.3)
[2022-12-23 11:19] LABS: BILIRUBIN,TOTAL 1.8 mg/dL (0.2-1); TOT PROT 7.5 g/dl (6.4-8.2)
[2022-12-23 11:20] LABS: HEMATOCRIT 39.4 % (32.4-45.2); HEMOGLOBIN 12.7 GM/dL (10.7-15.3); MCH 29.2 pg (25.7-33.7); MCHC 32.3 g/dl (32.0-36.0); MEAN CELL VOLUME 90.3 fl (80-96); MEAN PLT VOLUME 8.7 fl (7.5-11.1); PLATELET COUNT 213 10^3/uL (134-434); RBC 4.37 M/mm3 (3.60-5.2); RDW 16.8 % (11.6-15.6); WHITE BLOOD COUNT 8.5 K/mm3 (4.0-10.0)
[2022-12-23] MEDS: chlordiazePOXIDE HCL 25 MG CAPSULE PO PRN ×2 (15:16→20:14)
[2022-12-23] MEDS: BISMUTH SUBSALICYLATE 524 MG/30 ML PO PRN ×2 (15:17→20:16)
[2022-12-23] MEDS: hydrOXYzine PAMOATE 25 MG CAPSULE (FP) PO PRN (18:53)
[2022-12-23] MEDS: MELATONIN 5 MG TABLETS PO SCH (21:26)
[2022-12-23] MEDS: THIAMINE HCL 100 MG TABLET (FP) PO SCH (21:26)
[2022-12-24] MEDS: chlordiazePOXIDE HCL 25 MG CAPSULE PO SCH ×2 (05:47→10:04)
[2022-12-24] MEDS: METHOCARBAMOL 500 MG TABLET PO PRN (05:49)
[2022-12-24] MEDS: hydrOXYzine PAMOATE 25 MG CAPSULE (FP) PO PRN (07:55)
[2022-12-24] MEDS: chlordiazePOXIDE HCL 25 MG CAPSULE PO PRN (07:56)
[2022-12-24 08:47] VITALS: BP 110/78; PULSE 101; RESP 18; TEMP 97.3
[2022-12-24] MEDS: QUEtiapine FUMARATE 25 MG TABLET PO SCH (10:04)
[2022-12-24] MEDS: levETIRAcetam 500 MG TABLET (FP) PO SCH (10:04)
[2022-12-24] MEDS: PRENATAL VITAMINS W/ FOLIC ACID TABLET (FP) PO SCH (10:04)
[2022-12-24] MEDS: FAMOTIDINE 20 MG TABLET PO SCH (10:04)
[2022-12-25] MEDS ORDERED: chlordiazePOXIDE HCL 10 MG CAPSULE PO PRN
[2022-12-25] MEDS ORDERED: chlordiazePOXIDE HCL 10 MG CAPSULE PO SCH (05:00)
[2022-12-26] MEDS ORDERED: chlordiazePOXIDE HCL 10 MG CAPSULE PO SCH (05:00)
[2022-12-27] MEDS ORDERED: chlordiazePOXIDE HCL 10 MG CAPSULE PO ONE (05:00)
== END 2022-12-24 12:19 | disposition left against medical advice (07) | DRG 770 ==
LOC: YASAS 16:57 → Y3N 20:46
PROVIDERS: ADMIT Allergy & Immunology; ATTEND Allergy & Immunology
PROC: HZ2ZZZZ Detoxification Services for Substance Abuse Treatment (ICD-10-PCS; principal; 2022-12-22)
DX: F10.230 Alcohol dependence with withdrawal, uncomplicated (principal); F11.20 Opioid dependence, uncomplicated; F14.20 Cocaine dependence, uncomplicated; F17.210 Nicotine dependence, cigarettes, uncomplicated; F19.282 Other psychoactive substance dependence with psychoactive substance-induced sleep disorder; F19.280 Other psychoactive substance dependence with psychoactive substance-induced anxiety disorder; F19.24 Other psychoactive substance dependence with psychoactive substance-induced mood disorder; F41.9 Anxiety disorder, unspecified; I10 Essential (primary) hypertension; K21.9 Gastro-esophageal reflux disease without esophagitis; M54.50 Low back pain, unspecified; G89.29 Other chronic pain; Z56.0 Unemployment, unspecified; Z59.00 Homelessness unspecified
CPT/HCPCS: 36415; 80053; 81025; 85027; 86780; 87635; 87811; Q0162

== ENCOUNTER 2023-03-19 12:51 | Inpatient (IN) | payer OTHER ==
[2023-03-19 14:41] VITALS: BMI 19.3
[2023-03-19] MEDS ORDERED: ACETAMINOPHEN 325 MG TABLET (FP) PO PRN (16:28)
[2023-03-19] MEDS ORDERED: BISMUTH SUBSALICYLATE 524 MG/30 ML PO PRN (16:28)
[2023-03-19] MEDS ORDERED: MAG HYDROX/AL HYDROX/SIMETH 30 ML UNIT-DOSE CUP PO PRN (16:28)
[2023-03-19] MEDS ORDERED: ONDANSETRON *ODT* 4 MG TABLET SL PRN (16:28)
[2023-03-19] MEDS ORDERED: BENZOCAINE/MENTHOL (CHLORASEPTIC ) LOZENGE MM PRN (16:28)
[2023-03-19] MEDS ORDERED: LOPERAMIDE HCL 2 MG CAPSULE PO PRN (16:28)
[2023-03-19] MEDS ORDERED: NALOXONE HCL 0.4 MG/ML VIAL IM PRN (16:28)
[2023-03-19] MEDS ORDERED: NICOTINE POLACRILEX 2 MG GUM BUC PRN (16:28)
[2023-03-19] MEDS ORDERED: IBUPROFEN 400 MG TABLET (FP) PO PRN (16:28)
[2023-03-19] MEDS ORDERED: NALOXONE HCL (KLOXXADO) 8 MG SPRAY NS PRN (16:28)
[2023-03-19] MEDS ORDERED: MAGNESIUM HYDROX 2400MG/30ML ORAL SUSPENSION 30 ML CUP PO PRN (16:28)
[2023-03-19] MEDS ORDERED: POLYETHYLENE GLYCOL (HEALTHYLAX) 3350 17 GM PACKET PO PRN (16:28)
[2023-03-19] MEDS ORDERED: guaiFENesin 600 MG TABLET.ER (FP) PO PRN (16:28)
[2023-03-19] MEDS ORDERED: DICYCLOMINE HCL 10 MG CAPSULE PO PRN (16:28)
[2023-03-19] MEDS ORDERED: BENZONATATE 200 MG CAPSULE PO PRN (16:28)
[2023-03-19] MEDS ORDERED: P-EPHED 60MG/TRIPROLIDI 2.5MG TABLET PO PRN (16:28)
[2023-03-19] MEDS ORDERED: TRIMETHOBENZAMIDE HCL 200MG/2ML INJ IM ONE ×2 (16:32→17:21)
[2023-03-19] MEDS ORDERED: diazePAM 5 MG TABLET ONE (17:28)
[2023-03-19] MEDS: diazePAM 5 MG TABLET PO SCH ×2 (17:44→22:33)
[2023-03-19] MEDS: hydrOXYzine PAMOATE 25 MG CAPSULE (FP) PO PRN (18:32)
[2023-03-19] MEDS: cloNIDine HCL 0.1 MG TABLET PO PRN (20:23)
[2023-03-19] MEDS: METHOCARBAMOL 500 MG TABLET PO PRN (20:24)
[2023-03-19] MEDS: MELATONIN 5 MG TABLETS PO SCH (22:33)
[2023-03-19] MEDS: levETIRAcetam 500 MG TABLET (FP) PO SCH (22:33)
[2023-03-19] MEDS: THIAMINE HCL 100 MG TABLET (FP) PO SCH (22:33)
[2023-03-19] MEDS: FAMOTIDINE 20 MG TABLET PO SCH (22:33)
[2023-03-20] MEDS: diazePAM 5 MG TABLET PO SCH ×4 (05:38→22:16)
[2023-03-20] MEDS: METHOCARBAMOL 500 MG TABLET PO PRN ×2 (05:39→22:24)
[2023-03-20] MEDS: hydrOXYzine PAMOATE 25 MG CAPSULE (FP) PO PRN ×3 (05:39→19:44)
[2023-03-20] MEDS: PRENATAL VITAMINS W/ FOLIC ACID TABLET (FP) PO SCH (10:28)
[2023-03-20] MEDS: NICOTINE 7 MG/24 HOURS TOPICAL PATCH TD SCH (10:29)
[2023-03-20] MEDS: levETIRAcetam 500 MG TABLET (FP) PO SCH ×2 (10:29→22:16)
[2023-03-20] MEDS: FAMOTIDINE 20 MG TABLET PO SCH ×2 (10:29→22:16)
[2023-03-20] MEDS: diazePAM 5 MG TABLET PO PRN ×2 (13:11→19:44)
[2023-03-20] MEDS: cloNIDine HCL 0.1 MG TABLET PO PRN (17:37)
[2023-03-20] MEDS: MELATONIN 5 MG TABLETS PO SCH (22:16)
[2023-03-20] MEDS: THIAMINE HCL 100 MG TABLET (FP) PO SCH (22:16)
[2023-03-21] MEDS: diazePAM 5 MG TABLET PO SCH ×3 (05:31→22:09)
[2023-03-21] MEDS: hydrOXYzine PAMOATE 25 MG CAPSULE (FP) PO PRN ×2 (05:31→14:12)
[2023-03-21] MEDS: METHOCARBAMOL 500 MG TABLET PO PRN ×2 (05:31→16:45)
[2023-03-21] MEDS: IBUPROFEN 600 MG TABLET (FP) PO PRN ×2 (08:45→22:10)
[2023-03-21] MEDS: levETIRAcetam 500 MG TABLET (FP) PO SCH ×2 (09:56→22:08)
[2023-03-21] MEDS: PRENATAL VITAMINS W/ FOLIC ACID TABLET (FP) PO SCH (09:56)
[2023-03-21] MEDS: FAMOTIDINE 20 MG TABLET PO SCH ×2 (09:56→22:08)
[2023-03-21] MEDS: NICOTINE 7 MG/24 HOURS TOPICAL PATCH TD SCH (09:56)
[2023-03-21] MEDS: diazePAM 5 MG TABLET PO PRN ×2 (09:57→17:29)
[2023-03-21] MEDS ORDERED: QUEtiapine FUMARATE 25 MG TABLET PO ONE (16:13)
[2023-03-21] MEDS: cloNIDine HCL 0.1 MG TABLET PO PRN (22:07)
[2023-03-21] MEDS: MELATONIN 5 MG TABLETS PO SCH (22:08)
[2023-03-21] MEDS: THIAMINE HCL 100 MG TABLET (FP) PO SCH (22:08)
[2023-03-21] MEDS: QUEtiapine FUMARATE 50 MG TABLET PO SCH (22:08)
[2023-03-22] MEDS: diazePAM 5 MG TABLET PO PRN ×3 (00:43→14:50)
[2023-03-22] MEDS: diazePAM 5 MG TABLET PO SCH ×2 (05:32→17:21)
[2023-03-22] MEDS: hydrOXYzine PAMOATE 25 MG CAPSULE (FP) PO PRN ×2 (05:32→22:04)
[2023-03-22] MEDS: METHOCARBAMOL 500 MG TABLET PO PRN ×2 (05:32→19:14)
[2023-03-22] MEDS: PRENATAL VITAMINS W/ FOLIC ACID TABLET (FP) PO SCH (09:33)
[2023-03-22] MEDS: levETIRAcetam 500 MG TABLET (FP) PO SCH ×2 (09:34→22:03)
[2023-03-22] MEDS: FAMOTIDINE 20 MG TABLET PO SCH ×2 (09:34→22:04)
[2023-03-22] MEDS: QUEtiapine FUMARATE 50 MG TABLET PO SCH ×3 (09:36→22:04)
[2023-03-22] MEDS: NICOTINE 7 MG/24 HOURS TOPICAL PATCH TD SCH (09:36)
[2023-03-22] MEDS: cloNIDine HCL 0.1 MG TABLET PO PRN (17:21)
[2023-03-22] MEDS: THIAMINE HCL 100 MG TABLET (FP) PO SCH (22:04)
[2023-03-22] MEDS: MELATONIN 5 MG TABLETS PO SCH (22:04)
[2023-03-23] MEDS: IBUPROFEN 600 MG TABLET (FP) PO PRN (05:57)
[2023-03-23] MEDS: METHOCARBAMOL 500 MG TABLET PO PRN (05:59)
[2023-03-23] MEDS: hydrOXYzine PAMOATE 25 MG CAPSULE (FP) PO PRN (05:59)
[2023-03-23] MEDS ORDERED: diazePAM 5 MG TABLET PO ONE (06:00)
[2023-03-23 08:44] VITALS: BP 119/78; PULSE 86; RESP 18; TEMP 98.3
[2023-03-23] MEDS: FAMOTIDINE 20 MG TABLET PO SCH (10:28)
[2023-03-23] MEDS: QUEtiapine FUMARATE 50 MG TABLET PO SCH (10:28)
[2023-03-23] MEDS: NICOTINE 7 MG/24 HOURS TOPICAL PATCH TD SCH (10:28)
[2023-03-23] MEDS: PRENATAL VITAMINS W/ FOLIC ACID TABLET (FP) PO SCH (10:28)
== END 2023-03-23 09:31 | disposition home or self-care (01) | DRG 773 ==
LOC: YASAS 12:51 → Y3N 17:01
PROVIDERS: ADMIT Allergy & Immunology; ATTEND Surgery
PROC: HZ2ZZZZ Detoxification Services for Substance Abuse Treatment (ICD-10-PCS; principal; 2023-03-19)
DX: F10.230 Alcohol dependence with withdrawal, uncomplicated (principal); F11.20 Opioid dependence, uncomplicated; F13.20 Sedative, hypnotic or anxiolytic dependence, uncomplicated; F12.20 Cannabis dependence, uncomplicated; F17.210 Nicotine dependence, cigarettes, uncomplicated; F19.24 Other psychoactive substance dependence with psychoactive substance-induced mood disorder; M54.50 Low back pain, unspecified; G89.29 Other chronic pain; R63.4 Abnormal weight loss; Z68.1 Body mass index [BMI] 19.9 or less, adult; Z86.69 Personal history of other diseases of the nervous system and sense organs; Z87.19 Personal history of other diseases of the digestive system
CPT/HCPCS: 81025; 87635